=== PATIENT | male | born 1990 | race Hispanic/Latino ===

== ENCOUNTER 2017-10-21 11:40 | Emergency (ER) | payer SELFPAY ==
[2017-10-21 13:05] LABS: HEMATOCRIT 44.5 % (42-54); MEAN CORPUSCULAR HEMOGLOBIN 30.3 pg (27.0-33.0); MEAN CORPUSCULAR HGB CONC 35.8 g/dL (32.0-36.0); MEAN CORPUSCULAR VOLUME 84.6 fL (79-99); PLATELET COUNT (AUTO) 206 K/uL (130-400); RED BLOOD CELL COUNT(AUTO) 5.26 MIL/uL (4.50-6.20); RED CELL DISTRIBUTION WIDTH 13.1 % (11.0-15.5)
[2017-10-21 13:06] LABS: BASOPHILS % (AUTO) 0.5 % (0.0-5.0); EOSINOPHILS % (AUTO) 0.6 % (0.0-8.0); LYMPHOCYTES % (AUTO) 27.2 % (21.0-51.0); MONOCYTES % (AUTO) 5.6 % (3.0-13.0); NEUTROPHILS % (AUTO) 66.1 % (40.0-77.0); NUCLEATED RED BLOOD CELLS 0.1 % (0.0-0.19)
[2017-10-21 13:12] LABS: CREATININE 0.9 mg/dL (0.5-1.5); POTASSIUM 4.2 mmol/L (3.5-5.1)
== END 2017-10-21 14:37 | disposition home or self-care (01) ==
LOC: EDH 11:40
DX: F41.1 Generalized anxiety disorder (principal); R20.2 Paresthesia of skin; Z72.0 Tobacco use; Z88.1 Allergy status to other antibiotic agents
CPT/HCPCS: 36415; 80048; 85025

== ENCOUNTER 2018-05-28 21:47 | Emergency (ER) | payer OTHER | END 2018-05-28 22:41 | disposition home or self-care (01) | LOC: EDH 21:47 | DX: K03.81 Cracked tooth (principal); K02.9 Dental caries, unspecified; Z88.1 Allergy status to other antibiotic agents; Z72.0 Tobacco use ==

== ENCOUNTER 2018-06-25 07:39 | Emergency (ER) | payer OTHER ==
[2018-06-25] MEDS ORDERED: ONDANSETRON ODT 4 MG TAB ONE (08:41)
== END 2018-06-25 10:06 | disposition home or self-care (01) ==
LOC: EDH 07:39
DX: K52.9 Noninfective gastroenteritis and colitis, unspecified (principal); F12.10 Cannabis abuse, uncomplicated; Z88.1 Allergy status to other antibiotic agents
CPT/HCPCS: 36415; 83690

== ENCOUNTER 2021-03-08 00:08 | Emergency (ER) | payer OTHER ==
[2021-03-08] MEDS ORDERED: CYCL10 PO (17:16)
== END 2021-03-08 00:55 | disposition left against medical advice (07) ==
LOC: EDH 00:08
DX: M54.9 Dorsalgia, unspecified (principal); Z53.21 Procedure and treatment not carried out due to patient leaving prior to being seen by health care provider

== ENCOUNTER 2021-03-08 12:23 | Emergency (ER) | payer OTHER ==
[~2021-03-08] VITALS: Ht 167.6 cm; Wt 59.4 kg
[2021-03-08 12:28] VITALS: BP 131/69
[2021-03-08 13:50] VITALS: BP 110/68
[2021-03-08 15:15] VITALS: BP 117/61
[2021-03-08] MEDS ORDERED: HYDROCODONE/ACETAMINOPHEN 7.5/325 MG TAB PO ONE (16:00)
[2021-03-08 16:02] LABS: BASOPHILS % (AUTO) 0.7 % (0.0-5.0); LYMPHOCYTES % (AUTO) 19.5 % (21.0-51.0); MEAN CORPUSCULAR HEMOGLOBIN 29.5 pg (27.0-33.0); MEAN CORPUSCULAR HGB CONC 34.5 g/dL (32.0-36.0); MEAN CORPUSCULAR VOLUME 85.6 fL (79-99); MONOCYTES % (AUTO) 5.7 % (3.0-13.0); NEUTROPHILS % (AUTO) 69.6 % (40.0-77.0); PLATELET COUNT (AUTO) 254 K/uL (130-400); RED BLOOD CELL COUNT(AUTO) 5.96 MIL/uL (4.50-6.20); RED CELL DISTRIBUTION WIDTH 12.8 % (11.0-15.5); WHITE BLOOD COUNT (AUTO) 8.3 K/uL (4.8-10.8)
[2021-03-08 16:13] LABS: POTASSIUM 3.9 mmol/L (3.5-5.1)
[2021-03-08 16:17] LABS: ALBUMIN 4.1 g/dL (3.5-5.0); BILIRUBIN,TOTAL 0.7 mg/dL (0.2-1.0); TOTAL PROTEIN, SERUM 7.4 g/dL (6.0-8.3)
[2021-03-08 16:34] VITALS: BP 115/71
[2021-03-08 16:52] LABS: APPEARANCE,URINE Clear (CLEAR); BILIRUBIN,URINE Negative (NEGATIVE); COLOR,URINE Yellow (YELLOW); GLUCOSE, URINE (UA) Negative (NEGATIVE); KETONES,URINE Negative (NEGATIVE); LEUKOCYTE ESTERASE ,URINE Negative (NEGATIVE); NITRATE,URINE Negative (NEGATIVE); OCCULT BLOOD,URINE Negative (NEGATIVE); PROTEIN,URINE Negative (NEGATIVE)
[2021-03-08] MEDS ORDERED: CYCL10 PO (17:16)
== END 2021-03-08 17:38 | disposition home or self-care (01) ==
LOC: EDH 12:23
DX: S39.012A Strain of muscle, fascia and tendon of lower back, initial encounter (principal); G89.29 Other chronic pain; M54.6 Pain in thoracic spine; R20.0 Anesthesia of skin; J45.909 Unspecified asthma, uncomplicated; Z88.1 Allergy status to other antibiotic agents; Z88.2 Allergy status to sulfonamides; Z88.5 Allergy status to narcotic agent; F17.210 Nicotine dependence, cigarettes, uncomplicated; X58.XXXA Exposure to other specified factors, initial encounter; Y93.89 Activity, other specified; Y92.89 Other specified places as the place of occurrence of the external cause; Y99.8 Other external cause status
CPT/HCPCS: 36415; 71045; 72131; 80053; 81003; 85025

== ENCOUNTER 2022-06-21 22:55 | Emergency (ER) | payer OTHER ==
[~2022-06-21] VITALS: Ht 170.2 cm; Wt 67.1 kg
[~2022-06-21 22:55] MED LIST: CYCL10TA16 PO
[2022-06-21 23:07] VITALS: BP 144/68
[2022-06-21] MEDS ORDERED: PRED50TA2 PO (23:17)
[2022-06-21] MEDS ORDERED: HYDR-4068 PO (23:17)
[2022-06-21] MEDS ORDERED: KETOROLAC 30MG VIAL (30MG/ML) ONE (23:28)
[2022-06-21] MEDS ORDERED: KETOROLAC 15MG/ML VIAL (15MG/ML) ONE (23:30)
== END 2022-06-21 23:48 | disposition home or self-care (01) ==
LOC: EDH 22:55
DX: M54.50 Low back pain, unspecified (principal); G89.29 Other chronic pain; Z88.1 Allergy status to other antibiotic agents; Z88.2 Allergy status to sulfonamides; Z88.5 Allergy status to narcotic agent; Z79.1 Long term (current) use of non-steroidal anti-inflammatories (NSAID); F17.200 Nicotine dependence, unspecified, uncomplicated
CPT/HCPCS: 99283; 96372; J1885

== ENCOUNTER 2022-06-24 18:54 | Emergency (ER) | payer OTHER ==
[~2022-06-24] VITALS: Ht 170.2 cm; Wt 58.1 kg
[~2022-06-24 18:54] MED LIST changes: +HYDR-4068 PO; +PRED50TA2 PO
[2022-06-24 18:56] VITALS: BP 131/81
[2022-06-24] MEDS ORDERED: HYDROCODONE/ACETAMINOPHEN 10/325 MG TAB PO ONE (19:30)
[2022-06-24] MEDS ORDERED: CYCLOBENZAPRINE HCL 10 MG TABLET PO ONE (19:30)
[2022-06-24] MEDS ORDERED: CYCL10TA16 PO (19:32)
[2022-06-24] MEDS ORDERED: IBUP-2071 PO (19:32)
== END 2022-06-24 20:00 | disposition home or self-care (01) ==
LOC: EDH 18:54
DX: M25.50 Pain in unspecified joint (principal); F17.200 Nicotine dependence, unspecified, uncomplicated; Z88.2 Allergy status to sulfonamides; Z88.6 Allergy status to analgesic agent; Z88.1 Allergy status to other antibiotic agents; Z79.899 Other long term (current) drug therapy

== ENCOUNTER 2023-03-18 13:50 | Emergency (ER) | payer OTHER ==
[~2023-03-18] VITALS: Ht 170.2 cm; Wt 56.7 kg
[~2023-03-18 13:50] MED LIST changes: +IBUP-2071 PO
[2023-03-18 13:56] VITALS: BP 139/67; PULSE 93; RESP 18
== END 2023-03-18 17:46 | disposition left against medical advice (07) ==
LOC: EDH 13:50
DX: M54.50 Low back pain, unspecified (principal); M79.606 Pain in leg, unspecified; R06.02 Shortness of breath; Z53.21 Procedure and treatment not carried out due to patient leaving prior to being seen by health care provider

== ENCOUNTER 2023-03-19 09:57 | Emergency (ER) | payer OTHER ==
[~2023-03-19] VITALS: Ht 170.2 cm; Wt 56.7 kg
[2023-03-19 10:02] VITALS: BP 122/82; PULSE 70; RESP 16
[2023-03-19] MEDS ORDERED: KETOROLAC 30MG VIAL (30MG/ML) IM ONE (11:00)
== END 2023-03-19 13:10 | disposition home or self-care (01) ==
LOC: EDH 09:57
DX: G89.29 Other chronic pain (principal); M54.50 Low back pain, unspecified; F17.200 Nicotine dependence, unspecified, uncomplicated; Z79.899 Other long term (current) drug therapy; M48.00 Spinal stenosis, site unspecified; Z88.1 Allergy status to other antibiotic agents; Z88.2 Allergy status to sulfonamides; Z88.5 Allergy status to narcotic agent
CPT/HCPCS: 99283; 96372; J1885